=== PATIENT | male | born 1945 | race Caucasian/White ===

== ENCOUNTER → 2018-05-11 | Outpatient (CLI) | payer MEDICARE | END | disposition home or self-care (01) | LOC: CFH 12:53 | PROVIDERS: ATTEND Specialist | DX: M71.22 Synovial cyst of popliteal space [Baker], left knee (principal); M71.21 Synovial cyst of popliteal space [Baker], right knee; I82.503 Chronic embolism and thrombosis of unspecified deep veins of lower extremity, bilateral | CPT/HCPCS: 93970 ==

== ENCOUNTER → 2019-03-23 | Outpatient (CLI) | payer MEDICARE, OTHER ==
[~2019-03-23] MED LIST: APIX2.5T PO; CALC0.25 PO; FEBU40TA PO; GLIP10TA13 PO; OLME1TAB22 PO; OMEP40CA6 PO; OXYC10TA6 PO; PRED5TAB PO; ROSU10TA2 PO; SEMA0.25 SC
[2019-03-23 15:04] LABS: ALBUMIN 3.7 g/dL (3.4-5.0); ANION GAP 8 mmol/L (5-15); CALCIUM 9.8 mg/dL (8.5-10.1); CHLORIDE 106 mmol/L (98-107)
[2019-03-23 15:07] LABS: ALANINE AMINOTRANSFERASE 22 U/L (12-78); ALKALINE PHOSPHATASE 54 U/L (45-117); BILIRUBIN,TOTAL 0.6 mg/dL (0.2-1.0); CREATININE 2.57 mg/dL (0.7-1.3); TOTAL PROTEIN 6.9 g/dL (6.4-8.2)
[2019-03-23 15:13] LABS: BASOPHILS # (AUTO) 0.05 x10^3/uL (0-0.1); BASOPHILS % (AUTO) 1 % (0-1); EOSINOPHILS # (AUTO) 0.14 x10^3/uL (0-0.4); EOSINOPHILS % (AUTO) 2 % (1-7); LYMPHOCYTES # (AUTO) 1.83 x10^3/uL (1-3.4); LYMPHOCYTES % (AUTO) 20 % (22-44); MD NO; MEAN CORPUSCULAR HEMOGLOBIN 30.3 pg (27.5-34.5); MEAN CORPUSCULAR HGB CONC 33.1 g/dL (33.2-36.2); MEAN CORPUSCULAR VOLUME 91.4 fL (81-97); MEAN PLATELET VOLUME 8.2 fL (7.4-10.4); MONOCYTES # (AUTO) 0.52 x10^3/uL (0.2-0.8); MONOCYTES % (AUTO) 6 % (2-9); NEUTROPHILS # (AUTO) 6.84 x10^3/uL (1.8-6.8); NEUTROPHILS % (AUTO) 73 % (42-75); PLATELET COUNT 258 x10^3/uL (130-400); RED BLOOD COUNT 4.08 x10^6/uL (4.38-5.82); RED CELL DISTRIBUTION WIDTH 15.9 % (9.4-14.8)
[2019-03-23 15:29] LABS: INTERNATIONAL NORMALIZED RATIO 0.98 (0.93-1.1); PROTHROMBIN TIME 10.3 Seconds (9.6-11.5)
== END | disposition home or self-care (01) ==
LOC: STAR 13:39
PROVIDERS: ATTEND Neurological Surgery
DX: Z01.818 Encounter for other preprocedural examination (principal); M48.062 Spinal stenosis, lumbar region with neurogenic claudication
CPT/HCPCS: 36415; 71046; 80053; 85025; 85610; 85730; 93005

== ENCOUNTER 2019-12-11 08:45 | Inpatient (IN) | payer OTHER ==
[~2019-12-11] VITALS: Ht 170.2 cm; Wt 59.9 kg
[~2019-12-11 08:45] MED LIST changes: +METF500T17 PO; +METOCLOPRAMIDE; +MIRT-34 PO; +OMEP40CA42 PO; -OMEP40CA6 PO; +ONDA4TAB13 SL; +OXYC15TA PO
--- NOTE | 2019-12-11 08:45 | NUR ---
74 YR OLD MALE ARRIVED VIA EMS. PER REPORT PT HAD FALL TODAY, SLID OFF COUCH. DENIES LOC, DENIES HITTING HEAD, DENIES PAIN. "IT WAS A SOFT LANDING , LANDED ON CARPET" PT REPORTS INCREASED WEAKNESS OVER LAST WEEK. WAS DC'D FROM [facility] 11/24/19 FOR UTI, COMPLETED ABX. NOT SURE IF WEAKNESS R/T ? UTI OR NEW MEDICAITONS (UNSURE WHICH ONE). 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 "THE DIABETES HAS BEEN PRETTY CONTROLLED SINCE LOOSING ALL THE WEIGHT" OVER 100LBS OVER A YEARS TIME. PT HAS PEG TUBE IN PLACE. "LAST USED LAST WEEK. I CAN EAT" REPORTS PEG TUBE PLACEMENT R/T WEIGHT LOSS AND NOT EATING. PT COOPERATIVE WITH CARE. THIN CACHECTIC. PT PROVIDED WITH WARM BLANKET AND IVÁN PAWS WARMER. URINAL AT BEDSIDE.
--- NOTE | 2019-12-11 09:14 | NUR ---
DR MATHEW AT BEDSIDE TO EVAL PT.
[2019-12-11] MEDS ORDERED: SODIUM CHLORIDE 0.9% 1,000 ML IV ONE (09:16)
[2019-12-11] MEDS ORDERED: ONDA-89 PO (09:21)
[2019-12-11] MEDS ORDERED: OMEP40CA42 PO (09:26)
[2019-12-11] MEDS ORDERED: CARV3.1212 PO (09:26)
[2019-12-11] MEDS ORDERED: GLIP10TA13 PO (09:26)
[2019-12-11] MEDS ORDERED: OXYC15TA60 PO (09:26)
[2019-12-11] MEDS ORDERED: LORA1TAB46 PO (09:26)
[2019-12-11] MEDS ORDERED: [UNRECOGNIZED DRUG - CODE] PEG (09:28)
[2019-12-11] MEDS ORDERED: POLY17PO5 PO/NG (09:28)
[2019-12-11 09:43] LABS: BASOPHILS # (AUTO) 0.06 x10^3/uL (0-0.1); BASOPHILS % (AUTO) 1 % (0-1); EOSINOPHILS # (AUTO) 0.43 x10^3/uL (0-0.4); EOSINOPHILS % (AUTO) 8 % (1-7); LYMPHOCYTES # (AUTO) 1.56 x10^3/uL (1-3.4); LYMPHOCYTES % (AUTO) 28 % (22-44); MD NO; MEAN CORPUSCULAR HEMOGLOBIN 28.4 pg (27.5-34.5); MEAN CORPUSCULAR HGB CONC 32.4 g/dL (33.2-36.2); MEAN CORPUSCULAR VOLUME 87.9 fL (81-97); MEAN PLATELET VOLUME 8.3 fL (7.4-10.4); MONOCYTES # (AUTO) 0.33 x10^3/uL (0.2-0.8); MONOCYTES % (AUTO) 6 % (2-9); NEUTROPHILS # (AUTO) 3.11 x10^3/uL (1.8-6.8); NEUTROPHILS % (AUTO) 57 % (42-75); PLATELET COUNT 284 x10^3/uL (130-400); RED CELL DISTRIBUTION WIDTH 18.1 % (9.4-14.8)
[2019-12-11 09:49] LABS: ALBUMIN 2.6 g/dL (3.4-5.0); ANION GAP 7 mmol/L (5-15); CALCIUM 9.6 mg/dL (8.5-10.1); CHLORIDE 109 mmol/L (98-107); CREATININE 1.45 mg/dL (0.7-1.3)
[2019-12-11 09:53] LABS: CREATINE KINASE, TOTAL 47 U/L (39-308); TROPONIN I < 0.015 ng/mL (0.000-0.045)
[2019-12-11 10:04] LABS: MICROSCOPIC AUTO
[2019-12-11 10:06] LABS: CULTURE INDICATED? NO
--- NOTE | 2019-12-11 10:41 | NUR ---
PT SITTING UP ON GURNEY, NO ACUTE DISTRESS NOTED. DENIES PAIN. NO NEEDS EXPRESSED AT THIS TIME. WAITING FOR FURTHER DISPOSITION.
--- NOTE | 2019-12-11 10:57 | NUR ---
DR BORREGO AT BEDSIDE TO EVAL PT
[2019-12-11] MEDS ORDERED: ACETAMINOPHEN 325 MG TABLET PO PRN (11:00)
--- NOTE | 2019-12-11 11:53 | NUR ---
REPORT TO ESTELA TRAN
--- NOTE | 2019-12-11 12:07 | NUR ---
REPORT GIVEN TO PRADEEP TRAN.
[2019-12-11] MEDS: SODIUM CHLORIDE 0.9% 1,000 ML IV SCH ×2 (13:15→22:50)
[2019-12-11 13:59] VITALS: BP 154/78
[2019-12-11] MEDS: OXYcodone/APAP 5/325MG TABLET PO PRN (15:23)
[2019-12-11] MEDS: INSULIN LISPRO 100 UNITS/ML, PEN SQ-INSULIN SCH ×2 (16:00→21:00)
[2019-12-11 19:31] VITALS: BP 152/75
[2019-12-11 21:55] VITALS: BP 164/77
[2019-12-11] MEDS: APIXABAN 5 MG TABLET PO SCH (22:20)
[2019-12-11] MEDS: CARVEDILOL 3.125 MG TABLET PO SCH (22:20)
[2019-12-11] MEDS: MIRTAZAPINE 15 MG TABLET PO SCH (22:21)
[2019-12-12 03:12] VITALS: BP 148/72
[2019-12-12 05:46] LABS: BASOPHILS % (AUTO) 2 % (0-1); EOSINOPHILS # (AUTO) 0.48 x10^3/uL (0-0.4); EOSINOPHILS % (AUTO) 8 % (1-7); LYMPHOCYTES # (AUTO) 1.52 x10^3/uL (1-3.4); LYMPHOCYTES % (AUTO) 27 % (22-44); MD NO; MEAN CORPUSCULAR HEMOGLOBIN 29.5 pg (27.5-34.5); MEAN CORPUSCULAR HGB CONC 33.4 g/dL (33.2-36.2); MEAN CORPUSCULAR VOLUME 88.4 fL (81-97); MEAN PLATELET VOLUME 8.3 fL (7.4-10.4); MONOCYTES # (AUTO) 0.24 x10^3/uL (0.2-0.8); MONOCYTES % (AUTO) 4 % (2-9); NEUTROPHILS % (AUTO) 59 % (42-75); PLATELET COUNT 248 x10^3/uL (130-400); RED BLOOD COUNT 3.03 x10^6/uL (4.38-5.82); RED CELL DISTRIBUTION WIDTH 18.2 % (9.4-14.8)
[2019-12-12 05:48] LABS: ANION GAP 4 mmol/L (5-15); CHLORIDE 113 mmol/L (98-107); CREATININE 1.03 mg/dL (0.7-1.3)
[2019-12-12] MEDS: PANTOPROZOLE 40MG TABLET PO SCH (06:14)
[2019-12-12] MEDS: INSULIN LISPRO 100 UNITS/ML, PEN SQ-INSULIN SCH ×4 (07:00→20:00)
[2019-12-12 09:00] VITALS: BP 145/67
[2019-12-12] MEDS ORDERED: APIXABAN 2.5 MG TABLET PO SCH (09:00)
[2019-12-12] MEDS: APIXABAN 5 MG TABLET PO SCH ×2 (09:22→20:40)
[2019-12-12] MEDS: OXYcodone/APAP 5/325MG TABLET PO PRN ×2 (09:23→20:40)
[2019-12-12] MEDS: CARVEDILOL 3.125 MG TABLET PO SCH ×2 (09:23→20:40)
[2019-12-12 13:16] VITALS: BP 145/72
[2019-12-12] MEDS: SODIUM CHLORIDE 0.9% 1,000 ML IV SCH (13:38)
[2019-12-12 18:50] VITALS: BP 158/78
[2019-12-12 20:39] VITALS: BP 138/77
[2019-12-12] MEDS: MIRTAZAPINE 15 MG TABLET PO SCH (20:40)
[2019-12-13 01:25] VITALS: BP 120/63
[2019-12-13] MEDS: SODIUM CHLORIDE 0.9% 1,000 ML IV SCH ×2 (03:17→11:15)
[2019-12-13] MEDS: PANTOPROZOLE 40MG TABLET PO SCH (05:47)
[2019-12-13] MEDS: INSULIN LISPRO 100 UNITS/ML, PEN SQ-INSULIN SCH ×3 (07:00→16:00)
[2019-12-13 07:33] VITALS: BP 157/78
[2019-12-13] MEDS: CARVEDILOL 3.125 MG TABLET PO SCH (09:25)
[2019-12-13] MEDS: OXYcodone/APAP 5/325MG TABLET PO PRN ×3 (09:25→15:29)
[2019-12-13] MEDS: APIXABAN 5 MG TABLET PO SCH (09:25)
== END 2019-12-13 17:20 | disposition home health service (06) | DRG 682 ==
LOC: ED 10:19 → 3N 12:54
PROVIDERS: ADMIT Internal Medicine Infectious Disease; ATTEND Internal Medicine Infectious Disease
DX: N17.9 Acute kidney failure, unspecified (principal); E43 Unspecified severe protein-calorie malnutrition; E11.22 Type 2 diabetes mellitus with diabetic chronic kidney disease; E78.00 Pure hypercholesterolemia, unspecified; E78.5 Hyperlipidemia, unspecified; E86.0 Dehydration; I12.9 Hypertensive chronic kidney disease with stage 1 through stage 4 chronic kidney disease, or unspecified chronic kidney disease; K22.8 Other specified diseases of esophagus; N18.3 Chronic kidney disease, stage 3 (moderate); R13.10 Dysphagia, unspecified; W18.39XA Other fall on same level, initial encounter; Y93.89 Activity, other specified; Y92.89 Other specified places as the place of occurrence of the external cause; Y99.8 Other external cause status; Z93.1 Gastrostomy status; Z68.20 Body mass index [BMI] 20.0-20.9, adult
CPT/HCPCS: 36415; 71045; 80048; 81001; 82040; 82550; 82962; 83036; 83735; 84100; 84443; 84484; 85025; 93005; 99285; G0378; J1815; J7030

== ENCOUNTER 2020-01-29 18:37 | Inpatient (IN) | payer OTHER ==
[~2020-01-29] VITALS: Ht 172.7 cm; Wt 62.6 kg
[~2020-01-29 18:37] MED LIST changes: +CARV3.1212 PO; +LORA1TAB46 PO; +ONDA-89 PO; +OXYC15TA60 PO; +POLY17PO5 PO/NG; +[UNRECOGNIZED DRUG - CODE] PEG
--- NOTE | 2020-01-29 18:40 | NUR ---
LAT ENTRY: PT BIB BY [facility] FOR COUGH AND WEAKNESS. PT STATES THAT HE HASNT BEEN ABLE TO AMBUALTE. NORMALLY HE CAN WALK AROUND WITH HIS WALKER. HOWEVER, THE PAST 3 DAYS HE HAS BECOME INCREASINGLY WEAK. PT SAYS WAS TREATED AT [facility] FOR A BLADDER INFECTION AND DCd ON THURSDAY. EKG HAS BEEN DONE.
[2020-01-29] MEDS ORDERED: SODIUM CHLORIDE 0.9% 1,000 ML IV ONE (18:48)
[2020-01-29] MEDS ORDERED: SODIUM CHLORIDE FLUSH 10ML SYR IVF ONE (19:00)
[2020-01-29 19:30] LABS: ALBUMIN 2.7 g/dL (3.4-5.0); ANION GAP 8 mmol/L (5-15); CALCIUM 9.1 mg/dL (8.5-10.1); CHLORIDE 107 mmol/L (98-107)
[2020-01-29 19:33] LABS: TROPONIN I < 0.015 ng/mL (0.000-0.045)
[2020-01-29 19:36] LABS: BASOPHILS % (AUTO) 0 % (0-1); EOSINOPHILS # (AUTO) 0.09 x10^3/uL (0-0.4); EOSINOPHILS % (AUTO) 1 % (1-7); LYMPHOCYTES # (AUTO) 1.03 x10^3/uL (1-3.4); LYMPHOCYTES % (AUTO) 10 % (22-44); MD NO; MEAN CORPUSCULAR HEMOGLOBIN 31.1 pg (27.5-34.5); MEAN CORPUSCULAR HGB CONC 33.6 g/dL (33.2-36.2); MEAN CORPUSCULAR VOLUME 92.6 fL (81-97); MEAN PLATELET VOLUME 8.4 fL (7.4-10.4); MONOCYTES # (AUTO) 0.38 x10^3/uL (0.2-0.8); MONOCYTES % (AUTO) 4 % (2-9); NEUTROPHILS # (AUTO) 9.25 x10^3/uL (1.8-6.8); NEUTROPHILS % (AUTO) 86 % (42-75); PLATELET COUNT 246 x10^3/uL (130-400); RED BLOOD COUNT 3.03 x10^6/uL (4.38-5.82); RED CELL DISTRIBUTION WIDTH 19.4 % (9.4-14.8)
[2020-01-29 19:39] LABS: MICROSCOPIC AUTO
[2020-01-29 19:40] LABS: CULTURE INDICATED? NO
--- NOTE | 2020-01-29 19:58 | NUR ---
PT RESTING IN [facility]. UP FOR RE CHECK. NO NEEDS. VSS. NAD
--- NOTE | 2020-01-29 20:49 | NUR ---
PT RESTING IN [facility]. CRACKERS PROVIDED. THIRD BLANKET PROVIDED.
--- NOTE | 2020-01-29 21:56 | NUR ---
PT RESTING IN [facility]. LEVEL OF CARE ON PT HAS CHANGED. PT EDUCATED ON PLAN OF CARE AT THIS TIME.
[2020-01-29] MEDS ORDERED: ACETAMINOPHEN 325 MG TABLET PO PRN (22:30)
[2020-01-29] MEDS ORDERED: LACTATED RINGERS 1,000 ML IV SCH (22:30)
[2020-01-29] MEDS ORDERED: hydrALAzine 20 MG/ML, 1ML IVPush PRN (22:30)
[2020-01-29] MEDS ORDERED: BISACODYL 10 MG SUPP PR PRN (22:30)
[2020-01-29] MEDS ORDERED: ONDANSETRON 2MG/ML, 2ML IVPush PRN (22:30)
[2020-01-30] MEDS: OXYcodone IR 5MG TABLET PO PRN ×3 (00:43→15:00)
[2020-01-30] MEDS: MIRTAZAPINE 15 MG TABLET PO SCH ×2 (00:43→22:07)
[2020-01-30] MEDS: CARVEDILOL 3.125 MG TABLET PO SCH ×3 (00:43→22:07)
[2020-01-30 00:44] VITALS: BP 136/78
[2020-01-30 05:53] LABS: BASOPHILS # (AUTO) 0.02 x10^3/uL (0-0.1); BASOPHILS % (AUTO) 0 % (0-1); EOSINOPHILS # (AUTO) 0.31 x10^3/uL (0-0.4); EOSINOPHILS % (AUTO) 5 % (1-7); LYMPHOCYTES # (AUTO) 1.26 x10^3/uL (1-3.4); LYMPHOCYTES % (AUTO) 19 % (22-44); MD NO; MEAN CORPUSCULAR HEMOGLOBIN 30.8 pg (27.5-34.5); MEAN CORPUSCULAR HGB CONC 32.9 g/dL (33.2-36.2); MEAN CORPUSCULAR VOLUME 93.6 fL (81-97); MEAN PLATELET VOLUME 8.1 fL (7.4-10.4); MONOCYTES # (AUTO) 0.36 x10^3/uL (0.2-0.8); MONOCYTES % (AUTO) 5 % (2-9); NEUTROPHILS # (AUTO) 4.76 x10^3/uL (1.8-6.8); NEUTROPHILS % (AUTO) 71 % (42-75); PLATELET COUNT 189 x10^3/uL (130-400); RED BLOOD COUNT 2.55 x10^6/uL (4.38-5.82); RED CELL DISTRIBUTION WIDTH 19.4 % (9.4-14.8)
[2020-01-30 06:02] LABS: ANION GAP 6 mmol/L (5-15); CALCIUM 8.7 mg/dL (8.5-10.1); CHLORIDE 111 mmol/L (98-107); CREATININE 0.93 mg/dL (0.7-1.3)
[2020-01-30] MEDS ORDERED: INSULIN LISPRO 100 UNITS/ML, PEN SQ-INSULIN SCH (07:00)
[2020-01-30 08:00] VITALS: BP 139/76
[2020-01-30] MEDS: POLYETHYLENE GLYCOL 17 GM PACKET PEG SCH (08:04)
[2020-01-30] MEDS: APIXABAN 5 MG TABLET PO SCH ×2 (08:05→22:07)
[2020-01-30] MEDS: PANTOPRAZOLE 40MG TABLET PO SCH (08:05)
[2020-01-30] MEDS: CALCITRIOL 0.25 MCG CAPSULE PO SCH (08:05)
[2020-01-30] MEDS ORDERED: APIXABAN 2.5 MG TABLET PO SCH (09:00)
[2020-01-30 11:50] VITALS: BP 112/58
[2020-01-30 14:37] VITALS: BP 136/72
[2020-01-30] MEDS: SODIUM CHLORIDE FLUSH 10ML SYR IVF SCH (15:00)
[2020-01-30 17:18] VITALS: BP 143/67
[2020-01-30] MEDS ORDERED: APIX2.5T PO (18:19)
[2020-01-30 19:23] VITALS: BP 149/70
[2020-01-31 00:32] VITALS: BP 157/72
[2020-01-31] MEDS: INSULIN LISPRO 100 UNITS/ML, PEN SQ-INSULIN SCH ×2 (07:00→09:00)
[2020-01-31 07:46] VITALS: BP 151/73
[2020-01-31] MEDS: CARVEDILOL 3.125 MG TABLET PO SCH ×2 (08:30→20:55)
[2020-01-31] MEDS: POLYETHYLENE GLYCOL 17 GM PACKET PEG SCH (08:30)
[2020-01-31] MEDS: APIXABAN 5 MG TABLET PO SCH ×2 (08:30→20:54)
[2020-01-31] MEDS: PANTOPRAZOLE 40MG TABLET PO SCH (08:30)
[2020-01-31] MEDS: SODIUM CHLORIDE FLUSH 10ML SYR IVF SCH ×2 (08:31→20:56)
[2020-01-31 13:18] VITALS: BP 147/74
[2020-01-31 18:31] VITALS: BP 133/60
[2020-01-31] MEDS: MIRTAZAPINE 15 MG TABLET PO SCH (20:55)
[2020-01-31] MEDS: OXYcodone IR 5MG TABLET PO PRN (20:56)
[2020-02-01 00:47] VITALS: BP 130/68
[2020-02-01] MEDS: FLUTICASONE NASAL SPRAY 16GM NAS SCH ×2 (01:12→09:40)
[2020-02-01] MEDS: OXYcodone IR 5MG TABLET PO PRN ×2 (01:13→21:17)
[2020-02-01 07:43] VITALS: BP 173/77
[2020-02-01] MEDS: INSULIN LISPRO 100 UNITS/ML, PEN SQ-INSULIN SCH (09:30)
[2020-02-01] MEDS: CALCITRIOL 0.25 MCG CAPSULE PO SCH (09:40)
[2020-02-01] MEDS: POLYETHYLENE GLYCOL 17 GM PACKET PEG SCH (09:41)
[2020-02-01] MEDS: CARVEDILOL 3.125 MG TABLET PO SCH ×2 (09:41→21:00)
[2020-02-01] MEDS: PANTOPRAZOLE 40MG TABLET PO SCH (09:41)
[2020-02-01] MEDS: APIXABAN 5 MG TABLET PO SCH ×2 (09:41→20:53)
[2020-02-01] MEDS: SODIUM CHLORIDE FLUSH 10ML SYR IVF SCH ×2 (09:42→21:17)
[2020-02-01 13:21] VITALS: BP 145/76
[2020-02-01 20:20] VITALS: BP 129/75
[2020-02-01] MEDS: MIRTAZAPINE 15 MG TABLET PO SCH (20:53)
[2020-02-01] MEDS: GUAIFENESIN/DM 200-20MG, 10ML UDC PO PRN (23:52)
[2020-02-01] MEDS ORDERED: GABA300C10 PO (23:59)
[2020-02-02 00:56] VITALS: BP 147/70
[2020-02-02] MEDS: OXYcodone IR 5MG TABLET PO PRN ×2 (02:03→16:29)
[2020-02-02 05:51] LABS: BASOPHILS # (AUTO) 0.02 x10^3/uL (0-0.1); BASOPHILS % (AUTO) 0 % (0-1); EOSINOPHILS # (AUTO) 0.41 x10^3/uL (0-0.4); EOSINOPHILS % (AUTO) 9 % (1-7); LYMPHOCYTES # (AUTO) 1.08 x10^3/uL (1-3.4); LYMPHOCYTES % (AUTO) 24 % (22-44); MD NO; MEAN CORPUSCULAR HEMOGLOBIN 31.2 pg (27.5-34.5); MEAN CORPUSCULAR HGB CONC 33.1 g/dL (33.2-36.2); MEAN CORPUSCULAR VOLUME 94.2 fL (81-97); MEAN PLATELET VOLUME 8.3 fL (7.4-10.4); MONOCYTES # (AUTO) 0.36 x10^3/uL (0.2-0.8); MONOCYTES % (AUTO) 8 % (2-9); NEUTROPHILS # (AUTO) 2.65 x10^3/uL (1.8-6.8); NEUTROPHILS % (AUTO) 59 % (42-75); PLATELET COUNT 222 x10^3/uL (130-400); RED CELL DISTRIBUTION WIDTH 17.8 % (9.4-14.8)
[2020-02-02 05:55] LABS: ALBUMIN 2.1 g/dL (3.4-5.0); CHLORIDE 105 mmol/L (98-107)
[2020-02-02 05:59] LABS: CALCIUM 8.7 mg/dL (8.5-10.1); CREATININE 1.02 mg/dL (0.7-1.3)
[2020-02-02 06:45] LABS: ANION GAP 5 mmol/L (5-15)
[2020-02-02] MEDS: APIXABAN 5 MG TABLET PO SCH ×2 (08:25→20:22)
[2020-02-02] MEDS: PANTOPRAZOLE 40MG TABLET PO SCH (08:25)
[2020-02-02] MEDS: CARVEDILOL 3.125 MG TABLET PO SCH ×2 (08:25→20:22)
[2020-02-02] MEDS: POLYETHYLENE GLYCOL 17 GM PACKET PEG SCH (08:26)
[2020-02-02] MEDS: SODIUM CHLORIDE FLUSH 10ML SYR IVF SCH ×2 (08:26→20:21)
[2020-02-02] MEDS: FLUTICASONE NASAL SPRAY 16GM NAS SCH (08:26)
[2020-02-02] MEDS: INSULIN LISPRO 100 UNITS/ML, PEN SQ-INSULIN SCH ×2 (08:27→09:00)
[2020-02-02 08:39] VITALS: BP 151/69
[2020-02-02] MEDS ORDERED: GABAPENTIN 300 MG CAPSULE ONE (16:25)
[2020-02-02 16:27] VITALS: BP 158/74
[2020-02-02] MEDS: GABAPENTIN 300 MG CAPSULE PO SCH ×2 (16:29→20:22)
[2020-02-02] MEDS: GUAIFENESIN/DM 200-20MG, 10ML UDC PO PRN (18:33)
[2020-02-02] MEDS: MIRTAZAPINE 15 MG TABLET PO SCH (20:22)
[2020-02-02 21:29] VITALS: BP 155/76
[2020-02-03 00:30] VITALS: BP 135/68
[2020-02-03 07:57] VITALS: BP 158/77
[2020-02-03] MEDS: APIXABAN 5 MG TABLET PO SCH (08:00)
[2020-02-03] MEDS: GABAPENTIN 300 MG CAPSULE PO SCH ×2 (08:01→16:07)
[2020-02-03] MEDS: CARVEDILOL 3.125 MG TABLET PO SCH (08:01)
[2020-02-03] MEDS: PANTOPRAZOLE 40MG TABLET PO SCH (08:03)
[2020-02-03] MEDS: CALCITRIOL 0.25 MCG CAPSULE PO SCH (08:03)
[2020-02-03] MEDS: FLUTICASONE NASAL SPRAY 16GM NAS SCH (08:09)
[2020-02-03] MEDS: POLYETHYLENE GLYCOL 17 GM PACKET PEG SCH (08:09)
[2020-02-03] MEDS: INSULIN LISPRO 100 UNITS/ML, PEN SQ-INSULIN SCH (08:10)
[2020-02-03] MEDS: SODIUM CHLORIDE FLUSH 10ML SYR IVF SCH (13:50)
[2020-02-03 13:53] VITALS: BP 149/64
[2020-02-03] MEDS: OXYcodone IR 5MG TABLET PO PRN (17:26)
== END 2020-02-03 17:57 | DRG 392 ==
LOC: ED 19:13 → EDIP 20:49 → 3WST 23:30 → 3N 01-30 17:04
PROVIDERS: ADMIT Family Medicine; ATTEND Family Medicine
DX: K22.8 Other specified diseases of esophagus (principal); E44.0 Moderate protein-calorie malnutrition; D68.69 Other thrombophilia; R13.10 Dysphagia, unspecified; G89.29 Other chronic pain; I12.9 Hypertensive chronic kidney disease with stage 1 through stage 4 chronic kidney disease, or unspecified chronic kidney disease; N18.3 Chronic kidney disease, stage 3 (moderate); Z68.21 Body mass index [BMI] 21.0-21.9, adult; M54.5 Low back pain; E11.22 Type 2 diabetes mellitus with diabetic chronic kidney disease; E78.00 Pure hypercholesterolemia, unspecified; E78.5 Hyperlipidemia, unspecified; E86.0 Dehydration; K59.00 Constipation, unspecified; M1A.9XX0 Chronic gout, unspecified, without tophus (tophi); R62.7 Adult failure to thrive; Z79.84 Long term (current) use of oral hypoglycemic drugs; Z86.718 Personal history of other venous thrombosis and embolism; Z86.73 Personal history of transient ischemic attack (TIA), and cerebral infarction without residual deficits; Z93.1 Gastrostomy status; Z79.01 Long term (current) use of anticoagulants
CPT/HCPCS: 36415; 71045; 80048; 80069; 81001; 82040; 82962; 83036; 83605; 83735; 83880; 84100; 84443; 84484; 85025; 93005; 96361; 96374; G0378; J2405; J1815; J7030; J7120

== ENCOUNTER 2020-05-24 14:14 | Emergency (ER) | payer OTHER ==
[~2020-05-24] VITALS: Ht 170.2 cm; Wt 68.7 kg
[~2020-05-24 14:14] MED LIST changes: +GABA300C10 PO; -OXYC15TA PO; +OXYC15TA3 PO
[2020-05-24] MEDS ORDERED: DIPH,PERTUSS(ACELL),TET VAC/PF 0.5 ML IM-VACC ONE ×2 (14:30→14:33)
--- NOTE | 2020-05-24 14:39 | NUR ---
THIS IS A 74 YO MALE PT BIB [facility] FROM HOME AFTER PT WENT TO USE WALKER AND WALKER TIPPED OVER TRIPPING PT. PT HIT HEAD AND LANDED ON RIGHT SHOULDER. LAC NOTED TO RIGHT SCALP AND SMALL APPROX 1.5CM ABRAISION NOTED TO LEFT EYEBROW. PT DENIES LOC. AO X 4. GCS 15. ON ELIQUIS. PT ON CONT BP AND SPO2 MONITORS. ELIJAH AGUIRRE WAS AT BEDSIDE FOR EVAL. CALL LIGHT WITHIN REACH. WILL CONT TO MONITOR PT.
--- NOTE | 2020-05-24 15:25 | NUR ---
PT BACK FROM IMAGING. PT REQUESTED URINAL. PT C/O RIGHT HIP PAIN. ELIJAH AGUIRRE NOTIFIED. PT AWARE THAT WE ARE WAITING FOR IMAGING RESULTS. PT AO X 4. SKIN PWD APART FROM SMALL ABRAISIONS TO HEAD. PERRLA. CALL LIGHT WITHIN REACH. WILL CONT TO MONITOR PT.
--- NOTE | 2020-05-24 16:11 | NUR ---
PT TO CT SCAN VIA GURNEY AT THIS TIME. PT REPEATEDLY ASKING FOR FOOD/WATER. RN CONTINUOSLY EDUCATING PT ON NEED FOR IMAGING RESULTS PRIOR TO FEEDING TO ENSURE NOTHING SURGICAL IS GOING ON. PT VERBALIZES UNDERSTANDING. PT PROVIDED WITH MOUTH SWABS. PT AO X 4. SKIN PWD. RESP EVEN AND UNLABORED.
--- NOTE | 2020-05-24 17:30 | NUR ---
PT PROVIDED WITH MEAL TRAY AND EXTRA MILK PER PT'S REQUEST AND OKAY WITH ELIJAH AGUIRRE. PT AO X 4. SKIN PWD. REPS EVEN AND UNLABORED. PT AWARE HE WILL BE DC'D SOON. PT REQUESTED AND WAS PROVIDED WITH TAXI VOUCHER.
[2020-05-24 17:50] VITALS: BP 131/88
--- NOTE | 2020-05-24 18:00 | NUR ---
PT REQUESTED NEW SHIRT. RN FOUND ONE IN LOCKER. PT THEN REFUSED T-SHIRT.
== END 2020-05-24 18:21 | disposition home or self-care (01) ==
LOC: ED 15:28
DX: S01.01XA Laceration without foreign body of scalp, initial encounter (principal); S40.011A Contusion of right shoulder, initial encounter; S70.01XA Contusion of right hip, initial encounter; E11.9 Type 2 diabetes mellitus without complications; W18.30XA Fall on same level, unspecified, initial encounter; Y93.89 Activity, other specified; Y92.009 Unspecified place in unspecified non-institutional (private) residence as the place of occurrence of the external cause; Y99.8 Other external cause status
CPT/HCPCS: 70450; 90471; 90715; 99284

== ENCOUNTER 2020-06-13 11:37 | Inpatient (IN) | payer OTHER ==
[~2020-06-13] VITALS: Ht 170.2 cm; Wt 78.6 kg
--- NOTE | 2020-06-13 11:56 | NUR ---
ED MD AT BEDSIDE FOR EVAL. BEDSIDE REPORT TO CHELSEA AGUILERA. PT RESTING IN POSITION OF COMFORT. DENIES NEEDS. CALL LIGHT W/IN REACH. PT INSTRUCTED ON USE. VERBALIZED UNDERSTANDING. CONTINUOUS SPO2 AND CARDIAC MONITORING IN PLACE. VSS.
[2020-06-13] MEDS ORDERED: ASPIRIN 81 MG TABLET CHEW PO ONE ×2 (12:00→15:00)
[2020-06-13] MEDS ORDERED: SODIUM CHLORIDE FLUSH 10ML SYR IVF ONE (12:00)
--- NOTE | 2020-06-13 12:00 | NUR ---
PT [facility] FROM HOME. HOME CARE PROVIDER NOTICED INCREASED LEG SWELLING, WEIGHT GAIN, AND PT C/O SOME CHEST TIGHTNESS LAST NIGHT WHEN HE WENT TO BED.
--- NOTE | 2020-06-13 12:00 | NUR ---
REPORT LUDWIN FROM DARLENE TRAN. Addendum: 06/13/20 at 1217 by REANNA Amendment undone in EDM - 06/13/20 at 1232 by REANNA PT [facility] FROM HOME. HOME CARE PROVIDER NOTICED INCREASED LEG SWELLING, WEIGHT GAIN, AND PT C/O SOME CHEST PAIN TODAY.
[2020-06-13] MEDS ORDERED: ASPIRIN 81 MG TABLET CHEW ONE (12:10)
--- NOTE | 2020-06-13 12:17 | NUR ---
PT MEDICATED PER ORDERS. BLANKET PROVIDED. UNDERSTANDS POC. URINAL PROVIDED.
[2020-06-13 12:51] LABS: BASOPHILS # (AUTO) 0.01 x10^3/uL (0-0.1); BASOPHILS % (AUTO) 0 % (0-1); EOSINOPHILS # (AUTO) 0.37 x10^3/uL (0-0.4); EOSINOPHILS % (AUTO) 7 % (1-7); LYMPHOCYTES # (AUTO) 1.45 x10^3/uL (1-3.4); LYMPHOCYTES % (AUTO) 27 % (22-44); MD NO; MEAN CORPUSCULAR HGB CONC 31.9 g/dL (33.2-36.2); MEAN CORPUSCULAR VOLUME 87.6 fL (81-97); MEAN PLATELET VOLUME 8.1 fL (7.4-10.4); MONOCYTES # (AUTO) 0.42 x10^3/uL (0.2-0.8); MONOCYTES % (AUTO) 8 % (2-9); NEUTROPHILS # (AUTO) 3.04 x10^3/uL (1.8-6.8); NEUTROPHILS % (AUTO) 58 % (42-75); PLATELET COUNT 191 x10^3/uL (130-400); RED BLOOD COUNT 3.44 x10^6/uL (4.38-5.82)
[2020-06-13 13:06] LABS: ALBUMIN 3.1 g/dL (3.4-5.0); ANION GAP 5 mmol/L (5-15); CALCIUM 9.1 mg/dL (8.5-10.1); CHLORIDE 115 mmol/L (98-107)
--- NOTE | 2020-06-13 13:30 | NUR ---
ERP WAS OFF UNIT. NOTIFIED OF PT'S CRITICAL TROP 6.7 AND ELEVATED BNP. PT DENIES ANY CHEST PAIN AT THIS TIME. REPORTS CHEST PRESSURE THE PAST 5 OR 6 NIGHTS, "ONLY AT NIGHT". ERP AT BS TO REVIEW POC WITH PT NOW.
--- NOTE | 2020-06-13 14:03 | NUR ---
PT VOIDING IN URINAL WITHOUT DIFFICULTY. UNDERSTANDS PLAN FOR ADMISSION. VSS, NO CHEST PAIN AT THIS TIME.
--- NOTE | 2020-06-13 14:53 | NUR ---
THROUGHPUT RN: PT WITH [employer]. [facility] CALLED, SPOKE TO HOUSE SUP/BED CONTROL, DENIED PT TRANSFER "YOU CAN GO AHEAD AND ADMIT THIS PT, THANK YOU." [facility] SUP/BED CONTROL CALLED, SPOKE TO STEPHAN, DENIED PT TRANSFER "WE ARE ON CLOSED DIVERT AND CAN'T ACCEPT THIS PT." ER ADMITTING NOTIFIED AND PSN FORM COMPLETED/FAXED. SLOT MACHINE KEY PERSON/ER SUP NOTIFIED. CARD TELE BED REQUESTED PER ERP ORDER.
[2020-06-13] MEDS ORDERED: NITROGLYCERIN 0.4 MG/SPRAY SL PRN (15:00)
[2020-06-13] MEDS ORDERED: ACETAMINOPHEN 325 MG TABLET PO PRN (15:00)
[2020-06-13] MEDS ORDERED: morphine SULFATE 10 MG/ML, 1ML IV PRN (15:00)
[2020-06-13] MEDS ORDERED: NITROGLYCERIN 0.4 MG BOTTLE (25 TABS) SL PRN (15:00)
[2020-06-13] MEDS ORDERED: ASPIRIN 325 MG TABLET EC PO ONE (15:00)
[2020-06-13] MEDS ORDERED: POTASSIUM CHLORIDE 20 MEQ PACKET ONE (15:11)
[2020-06-13] MEDS ORDERED: FUROSEMIDE 40 MG/4 ML ONE (15:11)
[2020-06-13 15:12] LABS: % IRON SATURATION 25 % (20-55); IRON LEVEL 66 mcg/dL (65-175); TOTAL IRON BINDING CAPACITY 266 mcg/dL (250-450)
[2020-06-13] MEDS: POTASSIUM CHLORIDE 20 MEQ PACKET PO SCH (15:16)
[2020-06-13] MEDS: FUROSEMIDE 40 MG/4 ML IV SCH ×2 (15:16→22:36)
--- NOTE | 2020-06-13 15:20 | NUR ---
PT MEDICATED PER ORDERS. ASSISTED WITH REPOSITIONING IN [facility]. AWAITING BED ASSIGNMENT UPSTAIRS.
[2020-06-13] MEDS ORDERED: HEPARIN 5,000 UNITS/ML, 1ML IV PRN (16:00)
[2020-06-13] MEDS ORDERED: HEPARIN 25,000 UNITS/250ML PMX 250 ML IV PRN (16:00)
[2020-06-13] MEDS ORDERED: HEPARIN 5,000 UNITS/ML, 1ML IV ONE (16:00)
--- NOTE | 2020-06-13 17:06 | NUR ---
EMPTIED URINAL AGAIN. ASSISTED PT WITH REPOSITIONING. REPORTED TO EFRAIN TRAN ON TELE FLOOR.
[2020-06-13 20:13] VITALS: BP 125/55
[2020-06-13] MEDS: MIRTAZAPINE 15 MG TABLET PO SCH (20:39)
[2020-06-13] MEDS: SODIUM CHLORIDE FLUSH 10ML SYR IVF SCH (20:39)
[2020-06-13] MEDS: CARVEDILOL 3.125 MG TABLET PO SCH (20:39)
[2020-06-13] MEDS ORDERED: HYDROCORTISONE CRM 1%, 30GM TP PRN (21:00)
[2020-06-13] MEDS ORDERED: DIPHENHYDRAMINE 25 MG CAPSULE PO ONE (21:00)
[2020-06-13] MEDS: GABAPENTIN 300 MG CAPSULE PO PRN (22:35)
[2020-06-13] MEDS: ZOLPIDEM 5MG TABLET PO PRN (22:35)
[2020-06-14] MEDS ORDERED: DIPHENHYDRAMINE 25 MG CAPSULE PO ONE (01:00)
[2020-06-14] MEDS ORDERED: FAMOTIDINE 20 MG TABLET PO PRN (01:00)
[2020-06-14 02:21] VITALS: BP 129/73
[2020-06-14] MEDS: ASPIRIN 81 MG TABLET CHEW PO SCH (06:05)
[2020-06-14 06:48] LABS: ANION GAP 7 mmol/L (5-15); CALCIUM 8.9 mg/dL (8.5-10.1); CHLORIDE 114 mmol/L (98-107)
[2020-06-14 06:55] LABS: CREATININE 1.38 mg/dL (0.7-1.3)
[2020-06-14 08:05] VITALS: BP 136/80
[2020-06-14] MEDS: CARVEDILOL 3.125 MG TABLET PO SCH ×2 (08:26→20:22)
[2020-06-14] MEDS: SODIUM CHLORIDE FLUSH 10ML SYR IVF SCH ×2 (08:26→20:22)
[2020-06-14] MEDS: FUROSEMIDE 40 MG/4 ML IV SCH (08:34)
[2020-06-14] MEDS ORDERED: SODIUM CHLORIDE 0.9% 1,000 ML IV SCH ×3 (10:30→12:22)
[2020-06-14] MEDS ORDERED: BIVALIRUDIN 250 MG ONE (11:33)
[2020-06-14] MEDS ORDERED: FENTANYL PF 100 MCG/2ML ONE (11:33)
[2020-06-14] MEDS ORDERED: TICAGRELOR 90 MG TABLET ONE (11:33)
[2020-06-14] MEDS ORDERED: VERAPAMIL 2.5 MG/ML, 2ML ONE (11:33)
[2020-06-14] MEDS ORDERED: HEPARIN 1,000 UNITS/ML, 10ML ONE (11:33)
[2020-06-14] MEDS ORDERED: MIDAZOLAM 1 MG/ML, 5ML ONE (11:33)
[2020-06-14] MEDS ORDERED: LIDOCAINE-MPF 1%, 5ML ONE (11:33)
[2020-06-14 12:45] VITALS: BP 134/56
[2020-06-14] MEDS: POTASSIUM CHLORIDE 20 MEQ PACKET PO SCH (14:24)
[2020-06-14] MEDS ORDERED: DIPHENHYDRAMINE 25 MG CAPSULE ONE (16:42)
[2020-06-14] MEDS: FAMOTIDINE 20 MG TABLET PO PRN (16:48)
[2020-06-14 19:19] VITALS: BP 135/76
[2020-06-14] MEDS: MIRTAZAPINE 15 MG TABLET PO SCH (20:22)
[2020-06-14] MEDS: HYDROCORTISONE OINT 2.5%, 20GM TP SCH (21:00)
[2020-06-14] MEDS ORDERED: HYDROCORTISONE CRM 2.5%, 20GM TP SCH (21:00)
[2020-06-14] MEDS: GABAPENTIN 300 MG CAPSULE PO PRN (21:59)
[2020-06-15 01:41] VITALS: BP 126/66
[2020-06-15] MEDS: DIPHENHYDRAMINE 25 MG CAPSULE PO PRN ×2 (02:00→21:59)
[2020-06-15 04:44] LABS: ANION GAP 6 mmol/L (5-15); CALCIUM 8.7 mg/dL (8.5-10.1); CHLORIDE 108 mmol/L (98-107); CREATININE 1.54 mg/dL (0.7-1.3)
[2020-06-15] MEDS: ASPIRIN 81 MG TABLET CHEW PO SCH (06:08)
[2020-06-15 07:45] VITALS: BP 149/84
[2020-06-15] MEDS: CARVEDILOL 3.125 MG TABLET PO SCH ×2 (08:06→20:14)
[2020-06-15] MEDS: SODIUM CHLORIDE FLUSH 10ML SYR IVF SCH ×2 (08:06→20:14)
[2020-06-15] MEDS: HYDROCORTISONE OINT 2.5%, 20GM TP SCH ×3 (08:06→21:59)
[2020-06-15] MEDS ORDERED: LISINOPRIL 5 MG TABLET PO SCH (09:00)
[2020-06-15] MEDS ORDERED: CLOPIDOGREL 75 MG TABLET PO SCH (13:00)
[2020-06-15 13:48] VITALS: BP 137/79
[2020-06-15 19:14] VITALS: BP 155/84
[2020-06-15] MEDS: MIRTAZAPINE 15 MG TABLET PO SCH (20:14)
[2020-06-15] MEDS: APIXABAN 5 MG TABLET PO SCH (20:14)
[2020-06-15] MEDS ORDERED: ATORVASTATIN 80 MG TABLET PO SCH (21:00)
[2020-06-15] MEDS: FAMOTIDINE 20 MG TABLET PO PRN (21:59)
[2020-06-15] MEDS: GABAPENTIN 300 MG CAPSULE PO PRN (23:19)
[2020-06-16 00:31] VITALS: BP 131/71
[2020-06-16] MEDS: ZOLPIDEM 5MG TABLET PO PRN (00:36)
[2020-06-16] MEDS: ASPIRIN 81 MG TABLET CHEW PO SCH (06:07)
[2020-06-16 06:27] LABS: BASOPHILS # (AUTO) 0.03 x10^3/uL (0-0.1); BASOPHILS % (AUTO) 1 % (0-1); EOSINOPHILS # (AUTO) 0.49 x10^3/uL (0-0.4); EOSINOPHILS % (AUTO) 7 % (1-7); LYMPHOCYTES # (AUTO) 1.48 x10^3/uL (1-3.4); LYMPHOCYTES % (AUTO) 22 % (22-44); MD NO; MEAN CORPUSCULAR HEMOGLOBIN 28.3 pg (27.5-34.5); MEAN CORPUSCULAR HGB CONC 32.6 g/dL (33.2-36.2); MEAN CORPUSCULAR VOLUME 86.6 fL (81-97); MEAN PLATELET VOLUME 8.5 fL (7.4-10.4); MONOCYTES # (AUTO) 0.48 x10^3/uL (0.2-0.8); MONOCYTES % (AUTO) 7 % (2-9); NEUTROPHILS # (AUTO) 4.11 x10^3/uL (1.8-6.8); NEUTROPHILS % (AUTO) 62 % (42-75); PLATELET COUNT 207 x10^3/uL (130-400); RED CELL DISTRIBUTION WIDTH 17.7 % (9.4-14.8)
[2020-06-16 06:30] LABS: ANION GAP 7 mmol/L (5-15); CALCIUM 9.1 mg/dL (8.5-10.1); CHLORIDE 110 mmol/L (98-107); CREATININE 1.45 mg/dL (0.7-1.3)
[2020-06-16] MEDS ORDERED: ASPI-515 PO (06:51)
[2020-06-16] MEDS ORDERED: ATOR-2 PO (06:51)
[2020-06-16] MEDS ORDERED: HYDR453.4 TP (06:51)
[2020-06-16 08:12] VITALS: BP 138/69
[2020-06-16] MEDS: APIXABAN 5 MG TABLET PO SCH (09:51)
[2020-06-16] MEDS: HYDROCORTISONE OINT 2.5%, 20GM TP SCH (09:51)
[2020-06-16] MEDS: CARVEDILOL 3.125 MG TABLET PO SCH (09:51)
[2020-06-16] MEDS: SODIUM CHLORIDE FLUSH 10ML SYR IVF SCH (09:52)
[2020-06-16 12:34] VITALS: BP 125/76
== END 2020-06-16 14:00 | disposition home health service (06) | DRG 280 ==
LOC: ED 12:53 → EDIP 14:35 → 5SO 17:32
PROVIDERS: ADMIT Internal Medicine Cardiovascular Disease; ATTEND Hospitalist
PROC: 4A023N7 Measurement of Cardiac Sampling and Pressure, Left Heart, Percutaneous Approach (ICD-10-PCS; principal; 2020-06-14)
PROC: B211YZZ Fluoroscopy of Multiple Coronary Arteries using Other Contrast (ICD-10-PCS; 2020-06-14)
PROC: B215YZZ Fluoroscopy of Left Heart using Other Contrast (ICD-10-PCS; 2020-06-14)
DX: I21.4 Non-ST elevation (NSTEMI) myocardial infarction (principal); I50.21 Acute systolic (congestive) heart failure; I13.0 Hypertensive heart and chronic kidney disease with heart failure and stage 1 through stage 4 chronic kidney disease, or unspecified chronic kidney disease; D64.9 Anemia, unspecified; E78.5 Hyperlipidemia, unspecified; E11.22 Type 2 diabetes mellitus with diabetic chronic kidney disease; I25.10 Atherosclerotic heart disease of native coronary artery without angina pectoris; I25.5 Ischemic cardiomyopathy; N14.1 Nephropathy induced by other drugs, medicaments and biological substances; N18.3 Chronic kidney disease, stage 3 (moderate); T50.8X5A Adverse effect of diagnostic agents, initial encounter; Y92.89 Other specified places as the place of occurrence of the external cause; Z79.82 Long term (current) use of aspirin; Z79.01 Long term (current) use of anticoagulants; Z86.718 Personal history of other venous thrombosis and embolism; Z86.73 Personal history of transient ischemic attack (TIA), and cerebral infarction without residual deficits; Z87.440 Personal history of urinary (tract) infections; Z87.891 Personal history of nicotine dependence
CPT/HCPCS: 36415; 71045; 80048; 82040; 83540; 83550; 83880; 84484; 85025; 85520; 93005; 93306; 93458; 99156; 99157; C1769; C1894; G0378; J0583; J1644; J1940; J2250; J3010; Q0163; Q9967

== ENCOUNTER 2020-07-29 12:08 | Inpatient (IN) | payer OTHER ==
[~2020-07-29] VITALS: Ht 170.2 cm; Wt 47.8 kg
[~2020-07-29 12:08] MED LIST changes: +ASPI-515 PO; +ATOR-2 PO; +HYDR453.4 TP
[2020-07-29] MEDS ORDERED: LOSA25TA25 PO (13:08)
[2020-07-29] MEDS ORDERED: NITR100C56 PO (13:08)
[2020-07-29] MEDS ORDERED: FURO-93 PO (13:08)
[2020-07-29] MEDS ORDERED: LINA5TAB PO (13:08)
[2020-07-29] MEDS ORDERED: POTA20TA14 PO (13:08)
[2020-07-29 13:24] LABS: MICROSCOPIC AUTO
--- NOTE | 2020-07-29 13:26 | NUR ---
TP: Pt was refused by house raphael Rust @[facility]
[2020-07-29 13:34] LABS: BASOPHILS # (AUTO) 0.03 x10^3/uL (0-0.1); BASOPHILS % (AUTO) 0 % (0-1); EOSINOPHILS # (AUTO) 0.15 x10^3/uL (0-0.4); EOSINOPHILS % (AUTO) 2 % (1-7); LYMPHOCYTES # (AUTO) 0.91 x10^3/uL (1-3.4); LYMPHOCYTES % (AUTO) 11 % (22-44); MD NO; MEAN CORPUSCULAR HEMOGLOBIN 28.5 pg (27.5-34.5); MEAN CORPUSCULAR HGB CONC 31.9 g/dL (33.2-36.2); MEAN PLATELET VOLUME 7.3 fL (7.4-10.4); MONOCYTES # (AUTO) 0.49 x10^3/uL (0.2-0.8); MONOCYTES % (AUTO) 6 % (2-9); NEUTROPHILS # (AUTO) 6.55 x10^3/uL (1.8-6.8); NEUTROPHILS % (AUTO) 80 % (42-75); PLATELET COUNT 417 x10^3/uL (130-400); RED BLOOD COUNT 3.49 x10^6/uL (4.38-5.82); RED CELL DISTRIBUTION WIDTH 16.9 % (9.4-14.8)
[2020-07-29 13:40] LABS: ALANINE AMINOTRANSFERASE 15 U/L (12-78); ALBUMIN 2.8 g/dL (3.4-5.0); ANION GAP 7 mmol/L (5-15); CHLORIDE 109 mmol/L (98-107); CREATININE 1.87 mg/dL (0.7-1.3)
[2020-07-29 13:44] LABS: ALKALINE PHOSPHATASE 117 U/L (45-117); BILIRUBIN,TOTAL 0.4 mg/dL (0.2-1.0); TOTAL PROTEIN 8.2 g/dL (6.4-8.2); TROPONIN I 0.028 ng/mL (0.000-0.045)
--- NOTE | 2020-07-29 13:51 | NUR ---
BREAK RN: PT RESTING ON GURNEY W/ CALL LIGHT IN REACH AND SIDE RAILS UPX2. VSS, NADN. PT DENIES FURTHER NEEDS AT THIS TIME. AWAITING ADMIT.
[2020-07-29] MEDS ORDERED: CEFTRIAXONE PMX 1GM/50ML 50 ML ONE (13:56)
--- NOTE | 2020-07-29 13:57 | NUR ---
BREAK RN: LAB IN ROOM DRAWING CULTURES.
[2020-07-29] MEDS ORDERED: DOXYCYCLINE 100 MG in DEXTROSE 5% 250 ML IV SCH (14:00)
[2020-07-29] MEDS ORDERED: CEFTRIAXONE PMX 1GM/50ML 50 ML IVPB ONE (14:00)
[2020-07-29] MEDS ORDERED: SODIUM CHLORIDE 0.9% 1,000 ML IV ONE (14:00)
--- NOTE | 2020-07-29 14:08 | NUR ---
BREAK RN: PIV INFILTRATED UNABLE TO START IVF AND ABX AT THIS TIME. REPORT GIVEN TO PRIMARY RN.
--- NOTE | 2020-07-29 14:42 | NUR ---
IV PLACED BY [facility] D/C'D-INFILTRATED. 2OG IV PLACED TO LAC, UNABLE TO DRAW LABS BUT FLUSHES WELL. RUG DYER IN TO DRAW BC X 2. IV NS AND ROCEPHIN INFUSING FOLLOWING 2ND BC.
--- NOTE | 2020-07-29 14:58 | NUR ---
DR STARR CHANGED ADMIT ORDER TO MED/TELE, AWAITING ADMIT BED.
[2020-07-29] MEDS ORDERED: DOCUSATE 100 MG CAPSULE PO PRN (15:00)
[2020-07-29] MEDS ORDERED: BISACODYL 10 MG SUPP PR PRN (15:00)
[2020-07-29] MEDS ORDERED: ONDANSETRON 2MG/ML, 2ML IVPush PRN (15:00)
[2020-07-29 15:12] LABS: TROPONIN I 0.027 ng/mL (0.000-0.045)
--- NOTE | 2020-07-29 15:32 | NUR ---
REPORT TO FLOOR, PT READY FOR TRANSPORT
[2020-07-29] MEDS: INSULIN LISPRO 100 UNITS/ML, PEN SQ-INSULIN SCH ×2 (16:00→21:00)
[2020-07-29] MEDS: CEFTRIAXONE PMX 1GM/50ML 50 ML IV SCH (16:02)
[2020-07-29 16:26] VITALS: BP 150/91
[2020-07-29] MEDS: DOXYCYCLINE 100 MG in DEXTROSE 5% 250 ML IV SCH (17:25)
[2020-07-29] MEDS ORDERED: DEXTROMETHORPHAN 30 MG/5 ML ORAL SOL PO PRN (18:00)
[2020-07-29 19:51] VITALS: BP 100/70
[2020-07-29] MEDS: CARVEDILOL 3.125 MG TABLET PO SCH (21:06)
[2020-07-29] MEDS: APIXABAN 5 MG TABLET PO SCH (21:06)
[2020-07-29] MEDS: ATORVASTATIN 80 MG TABLET PO SCH (21:06)
[2020-07-29] MEDS: MIRTAZAPINE 15 MG TABLET PO SCH (21:06)
[2020-07-29] MEDS: GABAPENTIN 300 MG CAPSULE PO PRN (21:13)
[2020-07-29 22:59] LABS: TROPONIN I 0.032 ng/mL (0.000-0.045)
[2020-07-30 00:08] VITALS: BP 118/68
[2020-07-30] MEDS ORDERED: DOXYCYCLINE 100 MG in DEXTROSE 5% 250 ML IV SCH (02:00)
[2020-07-30] MEDS: DOXYCYCLINE 100 MG in DEXTROSE 5% 250 ML IV SCH ×2 (04:57→17:02)
[2020-07-30] MEDS: ASPIRIN 81 MG TABLET EC PO SCH (05:11)
[2020-07-30 05:28] LABS: BASOPHILS # (AUTO) 0.04 x10^3/uL (0-0.1); BASOPHILS % (AUTO) 1 % (0-1); EOSINOPHILS # (AUTO) 0.26 x10^3/uL (0-0.4); EOSINOPHILS % (AUTO) 4 % (1-7); LYMPHOCYTES # (AUTO) 1.35 x10^3/uL (1-3.4); LYMPHOCYTES % (AUTO) 21 % (22-44); MD NO; MEAN CORPUSCULAR HEMOGLOBIN 28.2 pg (27.5-34.5); MEAN CORPUSCULAR HGB CONC 31.8 g/dL (33.2-36.2); MEAN PLATELET VOLUME 7.5 fL (7.4-10.4); MONOCYTES # (AUTO) 0.64 x10^3/uL (0.2-0.8); MONOCYTES % (AUTO) 10 % (2-9); NEUTROPHILS % (AUTO) 65 % (42-75); PLATELET COUNT 337 x10^3/uL (130-400); RED BLOOD COUNT 3.17 x10^6/uL (4.38-5.82); RED CELL DISTRIBUTION WIDTH 16.6 % (9.4-14.8)
[2020-07-30 05:52] LABS: ANION GAP 9 mmol/L (5-15); CHLORIDE 112 mmol/L (98-107)
[2020-07-30 06:04] LABS: CREATININE 1.57 mg/dL (0.7-1.3)
[2020-07-30 06:41] VITALS: BP 162/83
[2020-07-30] MEDS: INSULIN LISPRO 100 UNITS/ML, PEN SQ-INSULIN SCH ×4 (07:00→20:48)
[2020-07-30] MEDS: APIXABAN 5 MG TABLET PO SCH ×2 (09:28→20:48)
[2020-07-30] MEDS: POTASSIUM CHLORIDE 20 MEQ TAB.ER.PRT PO SCH (09:28)
[2020-07-30] MEDS: CARVEDILOL 3.125 MG TABLET PO SCH ×2 (09:28→20:48)
[2020-07-30] MEDS: LOSARTAN 25MG TABLET PO SCH (09:29)
[2020-07-30] MEDS: FUROSEMIDE 20 MG TABLET PO SCH (09:29)
--- NOTE | 2020-07-30 09:45 | NUR ---
D/C REC: Home Addendum: 07/30/20 at 0947 by Catrina LANDRY Amended: Links added.
[2020-07-30 12:30] VITALS: BP 124/79
[2020-07-30] MEDS: CEFTRIAXONE PMX 1GM/50ML 50 ML IV SCH (15:40)
[2020-07-30 18:57] VITALS: BP 123/71
[2020-07-30] MEDS: ATORVASTATIN 80 MG TABLET PO SCH (20:48)
[2020-07-30] MEDS: MIRTAZAPINE 15 MG TABLET PO SCH (20:48)
[2020-07-30] MEDS: GABAPENTIN 300 MG CAPSULE PO PRN (21:00)
[2020-07-31 00:41] VITALS: BP 136/76
[2020-07-31] MEDS: DOXYCYCLINE 100 MG in DEXTROSE 5% 250 ML IV SCH ×2 (05:10→17:32)
[2020-07-31] MEDS: ASPIRIN 81 MG TABLET EC PO SCH (05:10)
[2020-07-31 06:36] VITALS: BP 147/84
[2020-07-31] MEDS: INSULIN LISPRO 100 UNITS/ML, PEN SQ-INSULIN SCH ×4 (07:00→20:23)
[2020-07-31] MEDS: LOSARTAN 25MG TABLET PO SCH (08:30)
[2020-07-31] MEDS: APIXABAN 5 MG TABLET PO SCH ×2 (08:30→20:22)
[2020-07-31] MEDS: POTASSIUM CHLORIDE 20 MEQ TAB.ER.PRT PO SCH (08:30)
[2020-07-31] MEDS: CARVEDILOL 3.125 MG TABLET PO SCH ×2 (08:30→20:22)
[2020-07-31] MEDS: FUROSEMIDE 20 MG TABLET PO SCH (08:31)
[2020-07-31 08:42] LABS: BASOPHILS # (AUTO) 0.05 x10^3/uL (0-0.1); BASOPHILS % (AUTO) 1 % (0-1); EOSINOPHILS # (AUTO) 0.44 x10^3/uL (0-0.4); EOSINOPHILS % (AUTO) 7 % (1-7); LYMPHOCYTES # (AUTO) 1.19 x10^3/uL (1-3.4); LYMPHOCYTES % (AUTO) 20 % (22-44); MD NO; MEAN CORPUSCULAR HEMOGLOBIN 28.2 pg (27.5-34.5); MEAN PLATELET VOLUME 7.4 fL (7.4-10.4); MONOCYTES # (AUTO) 0.53 x10^3/uL (0.2-0.8); MONOCYTES % (AUTO) 9 % (2-9); NEUTROPHILS # (AUTO) 3.78 x10^3/uL (1.8-6.8); NEUTROPHILS % (AUTO) 63 % (42-75); PLATELET COUNT 336 x10^3/uL (130-400); RED BLOOD COUNT 3.33 x10^6/uL (4.38-5.82); RED CELL DISTRIBUTION WIDTH 16.6 % (9.4-14.8)
[2020-07-31 08:50] LABS: ALBUMIN 2.4 g/dL (3.4-5.0); ANION GAP 6 mmol/L (5-15); CALCIUM 9.3 mg/dL (8.5-10.1); CHLORIDE 111 mmol/L (98-107)
[2020-07-31 08:53] LABS: ALANINE AMINOTRANSFERASE 14 U/L (12-78); ALKALINE PHOSPHATASE 103 U/L (45-117); BILIRUBIN,TOTAL 0.5 mg/dL (0.2-1.0); CREATININE 1.29 mg/dL (0.7-1.3); TOTAL PROTEIN 7.3 g/dL (6.4-8.2)
[2020-07-31 12:14] VITALS: BP 119/74
[2020-07-31] MEDS: GABAPENTIN 300 MG CAPSULE PO PRN ×2 (12:23→20:22)
[2020-07-31] MEDS: ACETAMINOPHEN 325 MG TABLET PO PRN (12:48)
[2020-07-31] MEDS: CEFTRIAXONE PMX 1GM/50ML 50 ML IV SCH (15:57)
[2020-07-31 19:06] VITALS: BP 119/73
[2020-07-31] MEDS: MIRTAZAPINE 15 MG TABLET PO SCH (20:22)
[2020-07-31] MEDS: ATORVASTATIN 80 MG TABLET PO SCH (20:22)
[2020-07-31] MEDS: MELATONIN 3 MG TABLET PO PRN (20:22)
[2020-08-01] MEDS: ACETAMINOPHEN 325 MG TABLET PO PRN ×3 (00:37→20:53)
[2020-08-01 01:27] VITALS: BP 123/74
[2020-08-01] MEDS: DOXYCYCLINE 100 MG in DEXTROSE 5% 250 ML IV SCH ×2 (05:07→16:38)
[2020-08-01] MEDS: ASPIRIN 81 MG TABLET EC PO SCH (05:08)
[2020-08-01 06:27] VITALS: BP 126/75
[2020-08-01 06:29] LABS: BASOPHILS # (AUTO) 0.04 x10^3/uL (0-0.1); BASOPHILS % (AUTO) 1 % (0-1); EOSINOPHILS # (AUTO) 0.44 x10^3/uL (0-0.4); EOSINOPHILS % (AUTO) 7 % (1-7); LYMPHOCYTES # (AUTO) 1.45 x10^3/uL (1-3.4); LYMPHOCYTES % (AUTO) 25 % (22-44); MD NO; MEAN CORPUSCULAR HEMOGLOBIN 28.2 pg (27.5-34.5); MEAN CORPUSCULAR HGB CONC 31.9 g/dL (33.2-36.2); MEAN PLATELET VOLUME 7.5 fL (7.4-10.4); MONOCYTES # (AUTO) 0.45 x10^3/uL (0.2-0.8); MONOCYTES % (AUTO) 8 % (2-9); NEUTROPHILS # (AUTO) 3.54 x10^3/uL (1.8-6.8); NEUTROPHILS % (AUTO) 60 % (42-75); PLATELET COUNT 309 x10^3/uL (130-400); RED BLOOD COUNT 3.22 x10^6/uL (4.38-5.82); RED CELL DISTRIBUTION WIDTH 16.1 % (9.4-14.8)
[2020-08-01 06:48] LABS: CHLORIDE 111 mmol/L (98-107)
[2020-08-01 06:58] LABS: ALANINE AMINOTRANSFERASE 32 U/L (12-78); ALBUMIN 2.2 g/dL (3.4-5.0); ALKALINE PHOSPHATASE 101 U/L (45-117); ANION GAP 6 mmol/L (5-15); BILIRUBIN,TOTAL 0.4 mg/dL (0.2-1.0); CREATININE 1.27 mg/dL (0.7-1.3)
[2020-08-01] MEDS: INSULIN LISPRO 100 UNITS/ML, PEN SQ-INSULIN SCH ×4 (07:00→20:55)
[2020-08-01] MEDS: POTASSIUM CHLORIDE 20 MEQ TAB.ER.PRT PO SCH (07:44)
[2020-08-01] MEDS: CARVEDILOL 3.125 MG TABLET PO SCH ×2 (07:44→20:53)
[2020-08-01] MEDS: FUROSEMIDE 20 MG TABLET PO SCH (07:44)
[2020-08-01] MEDS: APIXABAN 5 MG TABLET PO SCH ×2 (07:44→20:53)
[2020-08-01] MEDS: LOSARTAN 25MG TABLET PO SCH (07:44)
[2020-08-01 12:39] VITALS: BP 129/76
[2020-08-01] MEDS: CEFTRIAXONE PMX 1GM/50ML 50 ML IV SCH (15:16)
[2020-08-01 19:11] VITALS: BP 134/82
[2020-08-01] MEDS: GABAPENTIN 300 MG CAPSULE PO PRN ×2 (19:41→20:53)
[2020-08-01] MEDS: MIRTAZAPINE 15 MG TABLET PO SCH (20:53)
[2020-08-01] MEDS: ATORVASTATIN 80 MG TABLET PO SCH (20:53)
[2020-08-01] MEDS: MELATONIN 3 MG TABLET PO PRN (20:53)
[2020-08-02 02:21] VITALS: BP 119/71
[2020-08-02] MEDS: DOXYCYCLINE 100 MG in DEXTROSE 5% 250 ML IV SCH (05:23)
[2020-08-02] MEDS: ASPIRIN 81 MG TABLET EC PO SCH (05:24)
[2020-08-02 08:00] LABS: BASOPHILS # (AUTO) 0.05 x10^3/uL (0-0.1); BASOPHILS % (AUTO) 1 % (0-1); EOSINOPHILS # (AUTO) 0.62 x10^3/uL (0-0.4); EOSINOPHILS % (AUTO) 11 % (1-7); LYMPHOCYTES # (AUTO) 1.54 x10^3/uL (1-3.4); LYMPHOCYTES % (AUTO) 28 % (22-44); MD NO; MEAN CORPUSCULAR HEMOGLOBIN 28.2 pg (27.5-34.5); MEAN PLATELET VOLUME 7.6 fL (7.4-10.4); MONOCYTES # (AUTO) 0.39 x10^3/uL (0.2-0.8); MONOCYTES % (AUTO) 7 % (2-9); NEUTROPHILS # (AUTO) 2.84 x10^3/uL (1.8-6.8); NEUTROPHILS % (AUTO) 52 % (42-75); PLATELET COUNT 301 x10^3/uL (130-400); RED BLOOD COUNT 3.61 x10^6/uL (4.38-5.82); RED CELL DISTRIBUTION WIDTH 16.3 % (9.4-14.8)
[2020-08-02 08:12] LABS: ANION GAP 8 mmol/L (5-15); CALCIUM 9.2 mg/dL (8.5-10.1); CHLORIDE 111 mmol/L (98-107); CREATININE 1.28 mg/dL (0.7-1.3)
[2020-08-02 09:00] VITALS: BP 130/77
[2020-08-02] MEDS: LOSARTAN 25MG TABLET PO SCH (09:39)
[2020-08-02] MEDS: APIXABAN 5 MG TABLET PO SCH (09:39)
[2020-08-02] MEDS: FUROSEMIDE 20 MG TABLET PO SCH (09:39)
[2020-08-02] MEDS: INSULIN LISPRO 100 UNITS/ML, PEN SQ-INSULIN SCH ×2 (09:40→11:51)
[2020-08-02] MEDS: CARVEDILOL 3.125 MG TABLET PO SCH (09:40)
[2020-08-02] MEDS: POTASSIUM CHLORIDE 20 MEQ TAB.ER.PRT PO SCH (09:40)
[2020-08-02 12:53] VITALS: BP 114/64
[2020-08-02] MEDS: GABAPENTIN 300 MG CAPSULE PO PRN (12:58)
[2020-08-02] MEDS ORDERED: DOXY100T PO (13:22)
[2020-08-02] MEDS ORDERED: CEFD300C37 PO (13:22)
[2020-08-02] MEDS: CEFTRIAXONE PMX 1GM/50ML 50 ML IV SCH (14:42)
[2020-08-02] MEDS ORDERED: DOXYCYCLINE 100MG TABLET PO SCH (21:00)
== END 2020-08-02 16:49 | DRG 194 ==
LOC: ED 12:28 → EDIP 14:11 → 4WST 16:14
PROVIDERS: ADMIT Hospitalist; ATTEND Internal Medicine
DX: J18.1 Lobar pneumonia, unspecified organism (principal); I13.0 Hypertensive heart and chronic kidney disease with heart failure and stage 1 through stage 4 chronic kidney disease, or unspecified chronic kidney disease; D68.59 Other primary thrombophilia; N18.3 Chronic kidney disease, stage 3 (moderate); E11.22 Type 2 diabetes mellitus with diabetic chronic kidney disease; F17.200 Nicotine dependence, unspecified, uncomplicated; I25.10 Atherosclerotic heart disease of native coronary artery without angina pectoris; I25.2 Old myocardial infarction; I50.9 Heart failure, unspecified; Z79.01 Long term (current) use of anticoagulants; Z79.82 Long term (current) use of aspirin; Z79.899 Other long term (current) drug therapy; Z86.718 Personal history of other venous thrombosis and embolism; Z86.73 Personal history of transient ischemic attack (TIA), and cerebral infarction without residual deficits; Z87.440 Personal history of urinary (tract) infections; Z91.81 History of falling; Z79.4 Long term (current) use of insulin
CPT/HCPCS: 36415; 71045; 80048; 80053; 81001; 82962; 83605; 84145; 84443; 84484; 85025; 87040; 87086; 93005; 96365; 99285; G0378; J0696; J7060; J1815; J7030